=== PATIENT | female | born 1985 | race American Indian/Alaskan Native ===

== ENCOUNTER 2018-06-26 08:45 | Emergency (ER) | payer OTHER, BC ==
[~2018-06-26] VITALS: Ht 170.2 cm; Wt 9.5 kg
[~2018-06-26 08:45] MED LIST: KEFLEX500 MG PO; MUPIROCIN1 GM TP; NORCO 5-325 TA1 EACH PO; SSD20 GM TOP
[2018-06-26] MEDS ORDERED: NORCO 5-325 TA1 EACH PO (09:48)
== END 2018-06-26 10:05 | disposition home or self-care (01) ==
LOC: ED 08:45
DX: S30.0XXA Contusion of lower back and pelvis, initial encounter (principal); V49.60XA Unspecified car occupant injured in collision with unspecified motor vehicles in traffic accident, initial encounter
CPT/HCPCS: 72170; 96372; 99283-25; J1885

== ENCOUNTER 2018-07-07 15:40 | Emergency (ER) | payer OTHER, BC ==
[~2018-07-07] VITALS: Ht 170.2 cm; Wt 9.5 kg
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
== END 2018-07-07 16:32 | disposition home or self-care (01) ==
LOC: ED 15:40
DX: R20.0 Anesthesia of skin (principal); M54.5 Low back pain

== ENCOUNTER 2020-04-11 08:13 | Day surgery (SDC) | payer BC, OTHER ==
[~2020-04-11] VITALS: Ht 170.2 cm; Wt 72.0 kg
--- NOTE | 2020-04-11 10:28 | NUR ---
04/11/20 Winnie8 Rosa Brock 1024- PT ARRIVES TO RM 10 RESTING WITH EYES CLOSED. OPENS EYES WITH VERBAL STIMULI. REPOSITIONS SELF TO BACK. BACK TO SLEEP WHEN NOT STIMULATED. RESP EVEN AND UNLABORED. ROOM AIR SATS GREATER THAN 93%. DENIES PAIN OR NAUSEA. MOTHER AT BEDSIDE.
--- NOTE | 2020-04-12 07:54 | OR ---
[facility] [address] [place], [place] [address] Signed DATE OF OPERATION: 04/11/2020 SURGEON: Julia Estrella MD PREOPERATIVE DIAGNOSES: 1. Rectal bleeding. 2. Maternal aunt with colon cancer in her 40s. 3. Infertility evaluation at [facility]. POSTOPERATIVE DIAGNOSES: 1. A 5 mm polyp, distal right colon. 2. Minimal internal hemorrhoid/skin tags. PROCEDURE: Colonoscopy with hot biopsy. ESTIMATED BLOOD LOSS: None. INDICATIONS: Josué is a 34-year-old female, who asked to see me for colonoscopy. She has had intermittent rectal bleeding in the last several months. She is also undergoing infertility evaluation at [facility]. Her maternal aunt was diagnosed with colon cancer in her 40s. She had been referred by her local strategic marketing associate to have a colonoscopy. In the office, I gave Josué a pamphlet on colonoscopy. She understands the nature of the test along with the risks including, but not limited to gas bloating, crampy abdominal pain, bleeding, perforation requiring surgery, and missed diagnosis. She also understands the need for IV conscious sedation, she had expressed understanding and wished to proceed. DESCRIPTION OF PROCEDURE: Josué was taken into our endoscopy suite and placed in the left lateral decubitus position. She was given IV sedation with 9 mg of Versed and 175 mcg of fentanyl. A digital rectal exam was performed and this was unremarkable. No evidence of any external hemorrhoids. She has good sphincter tone. The adult colonoscope was introduced and advanced all the way around into the cecum under direct visualization of camera. It did take extra sedation abdominal compression in order to advance the scope. Her prep was quite good. We could easily see the appendiceal orifice and the ileocecal valve. The scope was slowly withdrawn. We took pictures throughout for photodocumentation. We found a small 5 mm polyp in the distal right colon. It was Electronically Signed By: JULIA ESTRELLA MD 04/12/20 0754 PATIENT NAME: JOSUÉ CASTELLON OPERATIVE REPORT DATE OF : 87 REPORT #: [id number] PHYSICIAN: JULIA ESTRELLA MD PCP: TIBURCIO KING REPORT IS CONFIDENTIAL AND NOT TO BE RELEASED WITHOUT AUTHORIZATION [address] [address] Signed easily removed with the help of hot biopsy forceps. She had no diverticulosis. The rectum itself was unremarkable. Upon retroflexion of scope, she has very minimal internal anal hemorrhoid tissue along with skin tags. After this, the gas was suctioned out, colonoscope removed. Josué tolerated the procedure quite well. RECOMMENDATIONS: I will see Josué back in my office in 7 to 14 days to review her results. MD LESLIE Glover/RACHIDL /[id number] cc: Julia Estrella MD [facility] Copies: JULIA ESTRELLA MD [facility] ~ Electronically Signed By: JULIA ESTRELLA MD 04/12/20 0754 PATIENT NAME: JOSUÉ CASTELLON OZ OPERATIVE REPORT DATE OF : [birth year] REPORT #: [id number] PHYSICIAN: JULIA ESTRELLA MD PCP: TIBURCIO KING REPORT IS CONFIDENTIAL AND NOT TO BE RELEASED WITHOUT AUTHORIZATION
--- NOTE | 2020-04-13 17:05 | PATH ---
[facility] [address] [place], [place] [address] Signed SPECIMEN(S): A RIGHT DISTAL COLON POLYP SPECIMEN SOURCE: A. RIGHT DISTAL COLON POLYP CLINICAL HISTORY: Rectal bleedings. Post-Op: Polyp, minimal internal hemorrhoids. MICROSCOPIC DESCRIPTION: Histologic sections of all submitted blocks are examined by light microscopy. These findings, together with the gross examination, support the pathologic diagnosis. FINAL PATHOLOGIC DIAGNOSIS: Right distal colon polyp, biopsy: - Tubular adenoma (two fragments). JVR:cml:C2NR GROSS DESCRIPTION: The specimen, labeled "Josué Castellon, #1," and designated on the requisition "right distal colon polyp," is received in formalin and consists of six monet soft tissue fragment(s) that measure 0.1-0.3 cm in greatest dimension. The specimen is entirely submitted in cassette (A1). FB (under the direct supervision of a pathologist) The Gross Description was prepared using a voice recognition system. The report was reviewed for accuracy; however, sound-alike word errors, addition and/or deletions may occur. If there is any question about this report, please contact Client Services. PERFORMING LABORATORY: The technical component was performed by [facility], [address] [place] [address] (Slitting Machine Operator Helper: Teresa Ness MD; CLIA# [id number]). Professional interpretation was performed by [facility], [facility], [address] [place] [address] (Slitting Machine Operator Helper: Jaime Simpson M.D.). Diagnostician: Rd Oquendo MD Pathologist Electronically Signed 04/13/2020 Copies: PATIENT NAME: JOSUÉ CASTELLON PATHOLOGY DATE OF : [birth year] REPORT #: [id number] PHYSICIAN: CELESTINO PATHOLOGY PCP: TIBURCIO KING REPORT IS CONFIDENTIAL AND NOT TO BE RELEASED WITHOUT AUTHORIZATION [address] [address] Signed ~ PATIENT NAME: JOSUÉ CASTELLON PATHOLOGY DATE OF : [birth year] REPORT #: [id number] PHYSICIAN: CELESTINO PATHOLOGY PCP: TIBURCIO KING REPORT IS CONFIDENTIAL AND NOT TO BE RELEASED WITHOUT AUTHORIZATION
== END 2020-04-11 11:03 | disposition home or self-care (01) ==
LOC: OPS 08:13 → DS 08:13 → OPS 09:00
PROVIDERS: ATTEND Colon & Rectal Surgery
PROC: 0DBK8ZZ Excision of Ascending Colon, Via Natural or Artificial Opening Endoscopic (ICD-10-PCS; principal; 2020-04-11 09:45)
DX: D12.2 Benign neoplasm of ascending colon (principal); K64.8 Other hemorrhoids; Z80.0 Family history of malignant neoplasm of digestive organs
CPT/HCPCS: 84703; 99153; G0500; J2250; J3010; J7121

== ENCOUNTER 2020-12-13 10:20 | Emergency (ER) | payer BC, OTHER ==
[~2020-12-13] VITALS: Ht 170.2 cm; Wt 98.0 kg
[2020-12-13] MEDS ORDERED: EMOQUETTE1 EACH PO (10:46)
== END 2020-12-13 12:21 | disposition home or self-care (01) ==
LOC: ED 10:20
DX: S06.0X0A Concussion without loss of consciousness, initial encounter (principal); W22.8XXA Striking against or struck by other objects, initial encounter
CPT/HCPCS: 70450; 99283-25

== ENCOUNTER 2021-04-19 08:20 | Emergency (ER) | payer BC, OTHER ==
[~2021-04-19] VITALS: Ht 172.7 cm; Wt 98.5 kg
[~2021-04-19 08:20] MED LIST changes: +EMOQUETTE1 EACH PO
[2021-04-19] MEDS ORDERED: MULTI-VITAMIN1 EACH PO (08:41)
== END 2021-04-19 13:51 | disposition home or self-care (01) ==
LOC: ED 08:20
DX: K80.20 Calculus of gallbladder without cholecystitis without obstruction (principal); Z79.899 Other long term (current) drug therapy
CPT/HCPCS: 74177; 76705; 80053; 80500; 81001; 83690; 84703; 85025; 96375; 99284-25; J1170; J2405; J7030; Q9967

== ENCOUNTER 2021-07-18 06:10 | Day surgery (SDC) | payer BC, OTHER ==
[~2021-07-18] VITALS: Ht 172.7 cm; Wt 99.5 kg
[~2021-07-18 06:10] MED LIST changes: +IRON18 MG PO; +MULTI-VITAMIN1 EACH PO
--- NOTE | 2021-07-18 09:18 | NUR ---
07/18/21 0918 Crissy Lewis 0914-PATIENT ARRIVED TO PACU ON 2L NC RR EVEN. NONAROUSABLE. SR. IVF INFUSING. SMALL AMT OF DRAINAGE TO JENNIFER PAD.
[2021-07-18] MEDS ORDERED: MOTRIN IB200 MG PO (09:33)
[2021-07-18] MEDS ORDERED: HYDROCODON-ACE1 EA10 PO (09:34)
--- NOTE | 2021-07-18 10:17 | NUR ---
PT ALERT, ORIENTED AND SUPPORTED BY FAMILY. PT IS PLEASANT, FEELS INFORMED. REQUESTED PRAYER, WILL FOLLOW
--- NOTE | 2021-07-19 17:45 | OR ---
[facility] [address] [place], [place] [address] Signed DATE OF OPERATION: 07/18/2021 SURGEON: Alis Aguilera MD PREOPERATIVE DIAGNOSIS: Endometrial polyp. POSTOPERATIVE DIAGNOSIS: Endometrial polyp. PROCEDURE: Hysteroscopy, resection of polyp. ANESTHESIA: MAC. ESTIMATED BLOOD LOSS: Minimal. DRAINS: None. INDICATIONS AND FINDINGS: The patient is a 35-year-old female, 1, para 1, undergoing IVF, who was found to have an intrauterine endometrial polyp. At the time of surgery, she was on her period. The uterus was normal size. It sounded to 7 cm. There were no adnexal masses. The cavity appeared normal except for an anterior right fundal polyp. DESCRIPTION OF PROCEDURE: The patient was prepped and draped in the dorsal lithotomy position. A weighted speculum was placed. The anterior lip of the cervix was visualized and grasped with a single-tooth tenaculum. The cavity was sounded to 7 cm. The endocervical canal was then easily dilated to a #8 dilator. The MyoSure device was then placed. The cavity was evaluated and the polyp identified. The MyoSure Lite was then introduced and the polyp removed without any difficulty. The remaining cavity appeared normal. The procedure was then terminated. The tenaculum was removed and there was some bleeding initially from the left hand tenaculum site which responded to pressure. The procedure was then terminated and she was taken to the recovery room in good condition. All sponge and needle counts were correct. Electronically Signed By: ALIS AGUILERA MD 07/19/21 9499 PATIENT NAME: JOSUÉ CASTELLON OPERATIVE REPORT DATE OF : [birth year] REPORT #: [id number] PHYSICIAN: ALIS AGUILERA MD PCP: [facility] REPORT IS CONFIDENTIAL AND NOT TO BE RELEASED WITHOUT AUTHORIZATION [address] [address] Signed MD DENISE Ahmadi/MODL /[id number] cc: Karen Copies: ~ Electronically Signed By: ALIS AGUILERA MD 07/19/21 1745 PATIENT NAME: JOSUÉ CASTELLON OPERATIVE REPORT DATE OF : [birth year] REPORT #: [id number] PHYSICIAN: ALIS AGUILERA MD PCP: [facility] REPORT IS CONFIDENTIAL AND NOT TO BE RELEASED WITHOUT AUTHORIZATION
== END 2021-07-18 10:00 | disposition home or self-care (01) ==
LOC: OPS 06:10 → DS 06:10 → OPS 07:30 → DS 08:40 → OPS 10:00
PROVIDERS: ATTEND Obstetrics & Gynecology
PROC: 0UB98ZZ Excision of Uterus, Via Natural or Artificial Opening Endoscopic (ICD-10-PCS; principal; 2021-07-18 08:40)
DX: N84.0 Polyp of corpus uteri (principal); E66.09 Other obesity due to excess calories; Z68.32 Body mass index [BMI] 32.0-32.9, adult
CPT/HCPCS: J1885; J2001; J2250; J2405; J2704; J2765; J7121

== ENCOUNTER 2021-07-27 06:45 | Day surgery (SDC) | payer BC, OTHER ==
[~2021-07-27] VITALS: Ht 172.7 cm; Wt 99.5 kg
[~2021-07-27 06:45] MED LIST changes: +HYDROCODON-ACE1 EA10 PO; +MOTRIN IB200 MG PO
--- NOTE | 2021-07-27 11:08 | NUR ---
07/27/21 1108 Sheets,Ysabel 1102 PT ARRIVED TO PACU WITH ORAL AIRWAY IN PLACE AND 10L VIA MASK. RESP EVEN AND UNLABORED. VSS. 1103 PT SLIGHTLY REACTIVE TO TACTILE STIMULI AND STARTING TO COUGH ON AIRWAY, AIRWAY REMOVED.
--- NOTE | 2021-07-27 13:10 | NUR ---
RESPONDS TO VOICE. DENIES NAUSEA - EATING CRACKERS AND SIPPING WATER. REPORTS 8/10 RIGHT EPIGASTRIC PAIN. MEDICATED PER EMAR FOR PAIN. DRESSINGS REMAIN CDI. ABD REMAINS SOFT. MOM (SONG) REMAINS IN ROOM.
--- NOTE | 2021-07-27 16:35 | NUR ---
FLEXT SITTING AT BEDSIDE, REPORTS NAUSEA IMPROVED. PROVIDED PATIENT WITH DISCHARGE EDUCATION, DISCUSSED SIGNS AND SYMPTOMS OF INFECTION, PAIN CONTROL AND DIET. PATIENT VERBALIZED UNDERSTANDING. MOTHER, FATHER IN ROOM HEARING DISCHARGE INSTRUCTION. PROVIDED PATIENT WITH WHEELCHAIR RIDE OUT TO FRONT, PATIENT TRANSFERED INTO CAR WELL.
--- NOTE | 2021-07-27 16:37 | NUR ---
1625 DRESSED READY TO GO. STATES PAIN IMPROVED. NOW EMESIS MOSTLY DRY HEAVES. CALL TO DR ESTRELLA AND ADDED SCRIPT FOR ZOFRAN. PT WANTING TO GO HOME.
--- NOTE | 2021-07-28 07:52 | OR ---
[facility] [address] [place], [place] [address] Signed DATE OF OPERATION: 07/27/2021 SURGEON: Julia Crane MD PREOPERATIVE DIAGNOSES: 1. Cholecystitis with cholelithiasis. 2. Umbilical hernia (7 mm). POSTOPERATIVE DIAGNOSES: 1. Cholecystitis with cholelithiasis. 2. Umbilical hernia (7 mm). 3. Cholesterolosis. PROCEDURES: 1. Laparoscopic cholecystectomy with intraoperative cholangiogram. 2. Primary umbilical herniorrhaphy. ESTIMATED BLOOD LOSS: None. FINDINGS: The intraoperative cholangiogram was unremarkable. Josué had one large stone practically 3 cm in diameter. She had three smaller stones over a cm in diameter each. She clearly had significant cholesterolosis. Not too much in the way of chronic inflammatory changes. INDICATIONS: Josué is a 35-year-old obese female, who has been going through infertility workup and evaluation and treatment over the last year or so. She has been on a number of different hormones. Right before 2020, she went to the emergency room with severe epigastric and right upper quadrant abdominal pain. It was radiating through to her back. She had nausea, vomiting, and diarrhea. Her laboratory work was unremarkable. The CT scan showed the stones in the gallbladder as well as a small umbilical hernia. Her ultrasound confirmed several large gallstones with the largest measuring around 2.9 cm. The gallbladder wall was not particularly thickened. The common bile duct was unremarkable. There was no pericholecystic fluid. There was no Willis sign. She was therefore asked to see me as a local general surgeon. She told me she has continued to have intermittent episodes of right upper quadrant abdominal pain but not nearly as bad as just before . In the office, I had given her a brochure on the gallbladder. We had reviewed the location and function of the Electronically Signed By: JULIA CRANE MD 07/28/21 0752 PATIENT NAME: JOSUÉ CASTELLON OPERATIVE REPORT DATE OF : [birth year] REPORT #: [id number] PHYSICIAN: JULIA CRANE MD PCP: [facility] REPORT IS CONFIDENTIAL AND NOT TO BE RELEASED WITHOUT AUTHORIZATION [facility] [address] [place], [place] [address] Signed gallbladder. We reviewed laparoscopic versus open cholecystectomy. We reviewed the expected intraop and postop course. There is risk including, but not limited to bleeding, infection, scarring, change in contour of the skin, damage to bowel, damage to the main bile duct, incisional hernias and other unforeseen comorbidities. She had expressed understanding and wished to proceed. DESCRIPTION OF PROCEDURE: I met with Josué and her mother in our preop area. After answering their questions, we took Josué into the operating room. She was placed in the supine position under general endotracheal tube anesthesia. She was given preoperative antibiotics along with subcutaneous heparin. SCDs were utilized. She was then prepped and draped in the usual sterile fashion. We utilized our standard transverse supraumbilical incision and carried it down around the umbilicus bluntly and with the cautery. We the small umbilical hernia sac from the fascial defect with the help of the cautery. The Ana trocar was placed through this fascial defect into the abdomen without difficulty. The abdomen was then insufflated without difficulty. Our other 3 trocar sites were placed under direct visualization without difficulty. We can see that she has a very healthy liver. The gallbladder was then grasped and elevated in the right upper quadrant. We took pictures throughout for photodocumentation. Thankfully, we can move her stones around into the gallbladder. We had to dissect carefully down and around the triangle of AC with the help of [place] dissectors. The intraoperative cholangiogram was then performed and this was unremarkable. We secured the cystic duct stump with three sequential clips placed completely across the cystic duct stump. We used a couple of clips across the cystic artery and it was divided. The gallbladder was slowly and carefully removed from the gallbladder fossa with the help of the cautery and placed into an EndoCatch bag. The right upper quadrant was irrigated and suctioned out until clear. We used our laparoscopic suturing device to pass 0-Vicryl suture on either side of the fascia of the subxiphoid trocar site. This was tied down to close the fascia primarily. After this, the trocars were removed. We had to lengthen the umbilical fascial defect vertically up to midline in order to remove the gallbladder with the large stones. That defect was approaching 3 cm in diameter due to the large stones. We then closed that fascial defect with interrupted gimrzk-gh-sdzqa and simple #1 Prolene sutures. We injected local anesthetic into the trocar sites. Each trocar site was irrigated and suctioned out until clear. We brought the umbilical skin back down to the midline with an interrupted 2-0 PDS suture. The skin and dermis were reapproximated with interrupted 3-0 subcuticular and Monocryl sutures. Dry gauze and tape were applied to all incisions. Josué was then awakened from her anesthesia, extubated in the OR, and taken to the recovery room in stable condition. Electronically Signed By: JULIA CRANE MD 07/28/21 0752 PATIENT NAME: JOSUÉ CASTELLON OPERATIVE REPORT DATE OF : [birth year] REPORT #: [id number] PHYSICIAN: JULIA CRANE MD PCP: [facility] REPORT IS CONFIDENTIAL AND NOT TO BE RELEASED WITHOUT AUTHORIZATION [facility] [address] [place] [place] [address] Signed Julia Crane MD [facility] /[id number] cc: Julia Crane MD [facility] Copies: JULIA CRANE MD ~ Electronically Signed By: JULIA CRANE MD 07/28/21 0752 PATIENT NAME: JOSUÉ CASTELLON OPERATIVE REPORT DATE OF : [birth year] REPORT #: [id number] PHYSICIAN: JULIA CRANE MD PCP: [facility] REPORT IS CONFIDENTIAL AND NOT TO BE RELEASED WITHOUT AUTHORIZATION
--- NOTE | 2021-07-30 15:21 | PATH ---
[facility] [address] [facility] [place], [place] [address] Signed SPECIMEN(S): A GALLBLADDER WITH STONES SPECIMEN SOURCE: A. GALLBLADDER WITH STONES CLINICAL HISTORY: Laparoscopic cholecystectomy. Chronic cholecystitis, umbilical hernia. FINAL PATHOLOGIC DIAGNOSIS: Gallbladder, cholecystectomy: - Chronic cholecystitis with cholesterolosis. - Cholelithiasis. NAL:[facility]:C2NR MICROSCOPIC EXAMINATION: Histologic sections of all submitted blocks are examined by light microscopy. These findings, together with the gross examination, support the pathologic diagnosis. GROSS DESCRIPTION: The specimen, labeled "JM, A," and designated on the requisition "gallbladder with stones," is received in formalin and consists of Specimen: Previously opened gallbladder. Dimensions: 9.4 x 3.5 x 1.8 cm. Serosa: [place]-monet. Cystic Duct: Unobstructed, margin inked black and shaved. Calculi: Four black, multifaceted brown-monet calculi (1.5-3.3 cm in greatest dimension). Mucosa: Red-brown and velvety with yellow stippling. Wall thickness: 0.4 cm. Lymph node: No pericystic lymph nodes are grossly identified. Additional: None. Packaging Clerk sections are submitted in cassette (A1). AC (under the direct supervision of a pathologist) The Gross Description was prepared using a voice recognition system. The report was reviewed for accuracy; however, sound-alike word errors, addition and/or deletions may occur. If there is any question about this report, please contact Client Services. PERFORMING LABORATORY: The technical component was performed by [facility], PATIENT NAME: JOSUÉ CASTELLON PATHOLOGY DATE OF : [birth year] REPORT #: [id number] PHYSICIAN: CELESTINO LOAIZA PCP: PATO MONTANA MD REPORT IS CONFIDENTIAL AND NOT TO BE RELEASED WITHOUT AUTHORIZATION [facility] [address] [place], [place] [address] [place] [address] (Supervisor Uranium Processing: Teresa Ness MD; CLIA# [id number]). Professional interpretation was performed by [facility], [facility], [address] [place] [address] (CLIA# [id number]). Diagnostician: Shilpi Richter MD Pathologist Electronically Signed 07/30/2021 Copies: ~ PATIENT NAME: JOSUÉ CASTELLON PATHOLOGY DATE OF : [birth year] REPORT #: [id number] PHYSICIAN: CELESTINO LOAIZA PCP: PATO MONTANA MD REPORT IS CONFIDENTIAL AND NOT TO BE RELEASED WITHOUT AUTHORIZATION
== END 2021-07-27 16:35 | disposition home or self-care (01) ==
LOC: DS 06:45
PROVIDERS: ATTEND Colon & Rectal Surgery
PROC: BF03YZZ Plain Radiography of Gallbladder and Bile Ducts using Other Contrast (ICD-10-PCS; 2021-07-27)
PROC: 0FT44ZZ Resection of Gallbladder, Percutaneous Endoscopic Approach (ICD-10-PCS; principal; 2021-07-27 09:00)
DX: K80.10 Calculus of gallbladder with chronic cholecystitis without obstruction (principal); K42.9 Umbilical hernia without obstruction or gangrene
CPT/HCPCS: 00790; 74300; J0131; J0690; J1100; J1170; J1644; J1885; J2001; J2250; J2405; J2704; J3010; J7121; Q9967

== ENCOUNTER 2021-08-03 10:30 | Emergency (ER) | payer BC, OTHER ==
[~2021-08-03] VITALS: Ht 172.7 cm; Wt 99.4 kg
--- OUTSIDE RECORDS SUMMARY | 2021-08-03 10:32 | XMS ---
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 TIBURCIO KING Physician Environmental Science Technician: Surgical 07/08/2018-Current PHONE: Unknown Stephanie has no Care Guidelines for this patient. Care History Medical/Surgical 07/08/2018 [facility] \T\middot;\T\nbsp; PATIENT IS A [employer] MEMBER. \T\middot;\T\nbsp; PLEASE REFER PATIENT TO [facility] FOR NON EMERGENT MEDICAL NEEDS. \T\middot;\ T\nbsp; [facility] CAN SEE PATIENTS SAME DAY FOR APTS IF PATIENT CALLS FIRST THING IN THE MORNING. E.D. VISIT COUNT (12 MO.) 3 [facility] TOTAL 3 NOTE: Visits indicate total known visits. ED/UCC VISIT TRACKING (12 MO.) 08/03/2021 10:30 [facility] [place] TYPE: Emergency COMPLAINT: - ALLERGIC REACTION TO MEDICATION 04/19/2021 08:21 [facility] [place] TYPE: Emergency COMPLAINT: - ABDOMINAL PAIN DIAGNOSES: - Other m[facility] (current) drug therapy - Calculus of gallbladder without cholecystitis without obstruction - Upper abdominal pain, unspecified 12/13/2020 10:21 [facility] [place] TYPE: Emergency COMPLAINT: - HEAD PAIN/INJURY DIAGNOSES: - Concussion without loss of consciousness, initial encounter - Dizziness and giddiness - Striking against or struck by other objects, initial encounter INPATIENT VISIT TRACKING (12 MO.) No inpatient visits to display in this time frame [email or web address]
[2021-08-03] MEDS ORDERED: IBUPROFEN800 MG PO (10:48)
[2021-08-03] MEDS ORDERED: APRI1 EACH PO (10:48)
[2021-08-03] MEDS ORDERED: ONDANSETRON HCL4 MG PO (10:48)
[2021-08-03] MEDS ORDERED: HYDROCODON-ACE1 EAC8 PO (10:48)
[2021-08-03] MEDS ORDERED: MEDROL4 MG PO (10:50)
== END 2021-08-03 12:27 | disposition home or self-care (01) ==
LOC: ED 10:30
DX: R21 Rash and other nonspecific skin eruption (principal); T39.315A Adverse effect of propionic acid derivatives, initial encounter; Z79.899 Other long term (current) drug therapy; Z85.41 Personal history of malignant neoplasm of cervix uteri
CPT/HCPCS: 96372; 99283; J1100

== ENCOUNTER 2022-06-04 14:15 | Inpatient (IN) | payer BC ==
[~2022-06-04] VITALS: Ht 172.7 cm; Wt 108.9 kg
[~2022-06-04 14:15] MED LIST changes: +APRI1 EACH PO; +HYDROCODON-ACE1 EAC8 PO; +IBUPROFEN800 MG PO; +MEDROL4 MG PO; +ONDANSETRON HCL4 MG PO
--- NOTE | 2022-06-05 02:27 | PR ---
[facility] [address] [place], [place] [address] Signed Progress Notes IP Datetime Report Generated by MARCELLUS: 06/05/2022 02:27 PROGRESS NOTES: [id number] Impression: Normal Progression of Labor; Reassuring Heart Rate Procedures: Artificial ROM; Scalp Electrode; Sterile Vag Exam Plan: Continue Present Management VITAL SIGNS: [id number] Vital Signs: Reviewed VS Notable Details: severe HTN EXAM: [id number] Dilatation: 2.0 Effacement: 75 Station: -2 Contractions: occ MEMBRANES: [id number] Comments: Some progress. Decreased variability with the mag but accel with exam is reassuring. BPs currently improved from earlier. FETUS A: [id number] FHR Baseline: 125 Variability: Moderate 6-25bpm Accelerations: 15X15 Decelerations: None FHR Category: Category I Presentation: Vertex Comments on Fetus A: no evidence of metabolic acidosis FETUS B: [id number] Signing Physician: Alis Aguilera MD Copies: ~ *Electronically Signed* 06/05/22 022 ALIS AGUILERA MD PATIENT NAME: JOSUÉ CASTELLON PROGRESS NOTE DATE OF : 87 PHYSICIAN: ALIS AGUILERA MD RPT #: [id number] REPORT IS CONFIDENTIAL AND NOT TO BE RELEASED WITHOUT AUTHORIZATION
--- NOTE | 2022-06-05 07:49 | PR ---
[facility] [address] [facility] [place], [place] [address] Signed Progress Notes IP Datetime Report Generated by MARCELLUS: 06/05/2022 07:49 PROGRESS NOTES: [id number] Impression: Normal Progression of Labor Procedures: Sterile Vag Exam Plan: Continue Present Management Other Plans: position change VITAL SIGNS: [id number] Vital Signs: Reviewed VS Notable Details: severe HTN EXAM: [id number] Dilatation: 9.0 Effacement: 90 Station: 0 Contractions: occ MEMBRANES: [id number] ROM Note: large amount of amniotic fluid noted, chux changed. Comments: Progressing well despite dysfunctional pattern. Decreased variability likely related to mag. Will begin position changes to help with decels. FETUS A: [id number] FHR Baseline: 125 Variability: Moderate 6-25bpm Accelerations: 15X15 Decelerations: None FHR Category: Category I Presentation: Vertex Comments on Fetus A: no evidence of metabolic acidosis FETUS B: [id number] Signing Physician: Alis Aguilera MD Copies: ~ *Electronically Signed* 06/05/22 0749 ALIS AGUILERA MD PATIENT NAME: JOSUÉ CASTELLON PROGRESS NOTE DATE OF : 87 PHYSICIAN: ALIS AGUILERA MD RPT #: [id number] REPORT IS CONFIDENTIAL AND NOT TO BE RELEASED WITHOUT AUTHORIZATION
--- NOTE | 2022-06-06 12:47 | PR ---
[facility] [address] [place] [address] Signed PP Progress Notes Datetime Report Generated by MARCELLUS: 06/06/2022 12:47 SUBJECTIVE: [id number] Pain: Within Normal Limits Nausea/Vomiting: Denies Vital Signs: [id number] Vital Signs: Reviewed Notable Details: severe HTN Cardiovascular: Not Done Respiratory: Not Done Abdomen/Uterus: Abnormal Lochia: Normal Vulva/Perineum: Not Done Breasts: Not Done CVA Tenderness: Not Done Extremities: Normal Incision: Not Applicable Progress: Normal Exam Comments: Fundus firm, NT @ U. H/H 9.7/29.1, WBC 10.3, plat 218k IMPRESSION/PLAN/PROCEDURES: [id number] Impression: Induced Hypertension Other Plans: start Procardia 10 mg + 30 mg XL Progress Notes: Her BPs had been doing well until just now with severe range BPs found. Will start Procardia 10 mg IR followed by 30 mg XL and continue close observation. Signing Physician: Alis Aguilera MD Copies: ~ *Electronically Signed* 06/06/22 1247 ALIS AGUILERA MD PATIENT NAME: JOSUÉ CASTELLON PROGRESS NOTE DATE OF : [birth year] PHYSICIAN: ALIS AGUILERA MD RPT #: [id number] REPORT IS CONFIDENTIAL AND NOT TO BE RELEASED WITHOUT AUTHORIZATION
--- NOTE | 2022-06-07 08:41 | PR ---
[facility] [address] [facility] [place], [place] [address] Signed PP Progress Notes Datetime Report Generated by MARCELLUS: 06/07/2022 08:41 SUBJECTIVE: [id number] Pain: Within Normal Limits Nausea/Vomiting: Denies Vital Signs: [id number] Vital Signs: Reviewed Notable Details: mild HTN Cardiovascular: Not Done Respiratory: Not Done Abdomen/Uterus: Abnormal Lochia: Normal Vulva/Perineum: Not Done Breasts: Not Done CVA Tenderness: Not Done Extremities: Normal Incision: Not Applicable Progress: Normal Exam Comments: Fundus firm, NT @ U-1. IMPRESSION/PLAN/PROCEDURES: [id number] Impression: Normal Progression; Induced Hypertension Other Impression: improved BPs Plan: Discharge Other Plans: start Procardia 10 mg + 30 mg XL Progress Notes: Doing well with improved BPs on her Procardia XL. I feel she is stable for D/C with short interval f/u. Signing Physician: Alis Aguilera MD Copies: ~ *Electronically Signed* 06/07/22 0841 ALIS AGUILERA MD PATIENT NAME: CASTELLONJOSUÉ PROGRESS NOTE DATE OF : 87 PHYSICIAN: ALIS AGUILERA MD RPT #: [id number] REPORT IS CONFIDENTIAL AND NOT TO BE RELEASED WITHOUT AUTHORIZATION
== END 2022-06-07 10:45 | disposition home or self-care (01) | DRG 807 ==
LOC: FBCO 14:15 → FBC 16:00
PROVIDERS: ADMIT Obstetrics & Gynecology; ATTEND Obstetrics & Gynecology
PROC: 10E0XZZ Delivery of Products of Conception, External Approach (ICD-10-PCS; principal; 2022-06-05)
PROC: 0KQM0ZZ Repair Perineum Muscle, Open Approach (ICD-10-PCS; 2022-06-05)
PROC: 10907ZC Drainage of Amniotic Fluid, Therapeutic from Products of Conception, Via Natural or Artificial Opening (ICD-10-PCS; 2022-06-05)
PROC: 00HU33Z Insertion of Infusion Device into Spinal Canal, Percutaneous Approach (ICD-10-PCS; 2022-06-05)
PROC: 3E0R3BZ Introduction of Anesthetic Agent into Spinal Canal, Percutaneous Approach (ICD-10-PCS; 2022-06-05)
PROC: 3E0P7VZ Introduction of Hormone into Female Reproductive, Via Natural or Artificial Opening (ICD-10-PCS; 2022-06-05)
DX: O14.14 Severe pre-eclampsia complicating childbirth (principal); Z37.0 Single live birth; O60.14X0 Preterm labor third trimester with preterm delivery third trimester, not applicable or unspecified; Z67.40 Type O blood, Rh positive; O70.1 Second degree perineal laceration during delivery; Z3A.35 35 weeks gestation of pregnancy; O99.214 Obesity complicating childbirth; Z20.822 Contact with and (suspected) exposure to COVID-19
CPT/HCPCS: 36415; 59025; 82565; 82570; 83735; 84156; 84450; 84520; 84550; 85027; 86850; 86900; 86901; 87502; A9270; C9803; G0463; J1644; J2405; J2540; J2795; J3010; J3475; J7121; U0003

== ENCOUNTER 2023-06-20 12:52 | Emergency (ER) | payer BC, OTHER ==
[~2023-06-20] VITALS: Ht 172.7 cm; Wt 97.7 kg
[2023-06-20 15:03] LABS: BASOPHILS 0.6 % (0-2); EOSINOPHILS 1.6 % (0-6); HEMATOCRIT 41.9 % (35.0-50.0); HEMOGLOBIN 13.5 g/dL (12.0-18.0); LYMPHOCYTES 21.4 % (24-44); MCH 23.7 (27-36); MCHC 32.1 g/dl (30-36); MCV 73.6 fl (81-99); MONOCYTES 8.6 % (0-12); NEUTROPHILS 67.8 % (39-80); PLATELET COUNT 413 K/uL (140-440); RBC 5.69 M/ul (4.3-5.7); RDW 16.3 (10.5-15.0)
[2023-06-20 15:16] LABS: ALBUMIN 3.6 g/dL (3.4-5.0); ALBUMIN/GLOBULIN RATIO 0.73 (1.1-2.4); ANION GAP 20.5 (7-21); BILIRUBIN, TOTAL 0.3 ng/dL (0.2-1.0); BUN/CREATININE RATIO 18.47 (6.0-28.6); CALCIUM 8.9 mg/dL (8.5-10.1); CREATININE, SERUM 0.92 mg/dL (0.55-1.02); POTASSIUM 3.5 mmol/L (3.5-5.1); PROTEIN, TOTAL 8.5 g/dL (6.4-8.2)
[2023-06-20] MEDS ORDERED: SODIUM CHLORIDE 0.9% 1,000 ML IV PRN (15:45)
[2023-06-20] MEDS ORDERED: ONDANSETRON ODT4 MG PO (16:50)
== END 2023-06-20 17:00 | disposition home or self-care (01) ==
LOC: ED 12:52
PROVIDERS: Emergency Medicine
DX: R11.10 Vomiting, unspecified (principal); R19.7 Diarrhea, unspecified
CPT/HCPCS: 36415; 80053; 83735; 85025; 96360; 99284-25; J7030

== ENCOUNTER 2023-11-24 20:43 | Emergency (ER) | payer OTHER, BC ==
[~2023-11-24] VITALS: Ht 172.7 cm; Wt 100.0 kg
[~2023-11-24 20:43] MED LIST changes: +ONDANSETRON ODT4 MG PO
[2023-11-24] MEDS ORDERED: TERBINAFINE HC250 MG PO (20:58)
[2023-11-24] MEDS ORDERED: TRAMADOL HCL50 MG PO (22:13)
[2023-11-24 22:26] VITALS: BP 120/58
[2023-11-24] MEDS ORDERED: TRAMADOL HCL 50 MG HOME.PACK PO ONE (22:30)
== END 2023-11-24 22:28 | disposition home or self-care (01) ==
LOC: ED 20:43
DX: S83.91XA Sprain of unspecified site of right knee, initial encounter (principal); S90.111A Contusion of right great toe without damage to nail, initial encounter; W01.198A Fall on same level from slipping, tripping and stumbling with subsequent striking against other object, initial encounter; Z79.899 Other long term (current) drug therapy
CPT/HCPCS: 73560; 73660; A9270

== ENCOUNTER 2024-11-25 05:55 | Day surgery (SDC) | payer BC, OTHER ==
[~2024-11-25] VITALS: Ht 172.7 cm; Wt 99.0 kg
[~2024-11-25 05:55] MED LIST changes: +IRON18 M1 PO; +LACTATED RINGER'S 1,000 ML IV SCH; +MULTI VITAMIN1 EACH PO; +TERBINAFINE HC250 MG PO; +TRAMADOL HCL50 MG PO; +ZYRTEC10 M3 PO
[2024-11-25 06:05] VITALS: BP 124/61
[2024-11-25] MEDS ORDERED: IBLOOD GLUCOSE TEST STRIP 1 EA TEST VI PRN ×2 (07:00→08:30)
[2024-11-25] MEDS ORDERED: LIDOCAINE HCL 1% 5 ML SDV INJ ONE (07:00)
[2024-11-25] MEDS ORDERED: fentaNYL citrate 100 MCG/2 ML VIAL ONE (07:04)
[2024-11-25] MEDS ORDERED: ACETAMINOPHEN 1,000 MG/100 ML VIAL ONE (07:04)
[2024-11-25] MEDS ORDERED: LIDOCAINE HCL 2% 5 ML SDV ONE (07:04)
[2024-11-25] MEDS ORDERED: MIDAZOLAM HCL 2 MG/2 ML VIAL ONE (07:05)
--- NOTE | 2024-11-25 07:40 | NUR ---
PT NOT AVAILABLE FOR VISIT. PROVIDED PRAYER.
[2024-11-25] MEDS ORDERED: KETOROLAC TROMETHAMINE 30 MG/ML VIAL ONE (08:15)
[2024-11-25] MEDS ORDERED: PROCHLORPERAZINE EDISYLATE 10 MG/2 ML VIAL IV PRN (08:30)
[2024-11-25] MEDS ORDERED: HYDROmorphone HCL 1 MG/ML SYR IV PRN (08:30)
[2024-11-25] MEDS ORDERED: fentaNYL citrate 50 MCG/ML SDV IV PRN (08:30)
[2024-11-25] MEDS ORDERED: NALOXONE HCL 0.4 MG SYR IV PRN (08:30)
--- NOTE | 2024-11-25 08:31 | NUR ---
11/25/24 0831 Crissy Lewis 0822-PATIENT ARRIVED TO PACU ON 6L MASK NONAROUSABLE ORAL AIRWAY IN PLACE. SR HR 70'S. IVF INFUSING. NO DRAINAGE TO JENNIFER AREA. 0831-PATIENT REMAINS NONAROUSABLE ORAL AIRWAY IN PLACE 6L MASK RR EVEN 100%
[2024-11-25] MEDS ORDERED: IBU600 MG PO ×2 (08:49→08:52)
[2024-11-25] MEDS ORDERED: ACETAMINOPHEN325 M1 PO (08:50)
[2024-11-25] MEDS ORDERED: OXYCODONE HCL5 M1 PO (08:51)
[2024-11-25 09:21] VITALS: BP 135/77
--- NOTE | 2024-11-26 07:40 | OR ---
[address] [place], [place] [address] Signed DATE OF OPERATION: 11/25/2024 SURGEON: Dolly Neves MD PREOPERATIVE DIAGNOSES: 1. Dysfunctional uterine bleeding. 2. Endometrial polyp. POSTOPERATIVE DIAGNOSIS: Dysfunctional uterine bleeding. PROCEDURE: Diagnostic hysteroscopy, endometrial tissue sampling, NovaSure endometrial ablation. FINDINGS: Normal cervical canal, normal uterine cavity, normal tubal ostia. ANESTHESIA: MAC plus local. LPN OR MEDICAL ASSISTANT: None. IV FLUIDS: 800 mL crystalloid. ESTIMATED BLOOD LOSS: 5 mL. URINE OUTPUT: 200 mL clear urine. DRAINS: None. SPECIMENS: Endometrial curettings. COUNTS: Correct x2. Electronically Signed By: DOLLY NEVES MD 11/26/24 0740 PATIENT NAME: JOSUÉ CASTELLON OPERATIVE REPORT DATE OF : 87 REPORT #: [id number] PHYSICIAN: DOLLY NEVES MD PCP: PATO MONTANA MD REPORT IS CONFIDENTIAL AND NOT TO BE RELEASED WITHOUT AUTHORIZATION [address] [place], [place] [address] Signed COMPLICATIONS: None apparent. TECHNIQUE IN DETAIL: With informed consent and negative hCG patient was taken to the operating room. She was given IV sedation. Her lower extremities were placed in Yellofin stirrups and low lithotomy position. She underwent a brief exam under anesthesia. She was prepped and draped in sterile fashion. Lower extremities were placed in the [facility] pneumatic compression devices. Time-out was performed per protocol. Speculum was placed and the cervix was visualized. The patient was given a paracervical block using 0.25% Marcaine with epinephrine. Single-tooth tenaculum was placed on the anterior lip of the cervix. The cervical canal was dilated using Hegar dilators to a size #6. The hysteroscope was then inserted without difficulty and there was visualization of the cervical canal and uterine cavity and tubal ostia. We used normal saline for insufflation medium. We took careful look all over and found no obvious endometrial polyp. At this time, some gentle curettings were performed for endometrial sampling in order to ensure no neoplastic tissue present before we performed the ablation. Tissue was sent to Pathology. The NovaSure uterine cavity measurement device was then inserted into the uterus and uterine cavity was measured. We found the uterine cavity to be 6 cm. The device was then removed. The NovaSure ablation device was then inserted into the uterine cavity and deployed per protocol. The width was measured. The ablation device was seated per protocol. The width was retracted and adjusted slightly. Length and width were put into the computer and cavity assessment was then performed and past. Ablation was begun. Total ablation time was 57 seconds. The device was then removed without difficulty. Single-tooth tenaculum was removed. The cervix was found to be hemostatic. I and O catheterization of the patient's bladder was performed and the above amount was removed. DISPOSITION: The patient was taken to the recovery room in stable condition. Dolly Neves MD BB/BRANDON Electronically Signed By: DOLLY NEVES MD 11/26/24 0740 PATIENT NAME: JOSUÉ CASTELLON OPERATIVE REPORT DATE OF : 87 REPORT #: [id number] PHYSICIAN: DOLLY NEVES MD PCP: PATO MONTANA MD REPORT IS CONFIDENTIAL AND NOT TO BE RELEASED WITHOUT AUTHORIZATION [address] [place], [place] [address] Signed /[id number] Copies: ~ Electronically Signed By: DOLLY NEVES MD 11/26/24 0740 PATIENT NAME: JOSUÉ CASTELLON OPERATIVE REPORT DATE OF : 87 REPORT #: [id number] PHYSICIAN: DOLLY NEVES MD PCP: PATO MONTANA MD REPORT IS CONFIDENTIAL AND NOT TO BE RELEASED WITHOUT AUTHORIZATION
--- NOTE | 2024-11-29 16:15 | PATH ---
[facility] [address] [place], [place] [address] Signed SPECIMEN(S): A ENDOMETRIAL CURETTINGS SPECIMEN SOURCE: A. ENDOMETRIAL CURETTINGS CLINICAL HISTORY: History of polyps and AUB FINAL PATHOLOGIC DIAGNOSIS: Endometrial curettings: - Proliferative endometrium with focal polypoid features. - Negative for hyperplasia or atypia. - Benign endocervical mucosa. JVR:clv MICROSCOPIC EXAMINATION: Histologic sections of all submitted blocks are examined by light microscopy. These findings, together with the gross examination, support the pathologic diagnosis. GROSS DESCRIPTION: The specimen, labeled and designated "Castellon, endometrial curettings," is received in formalin and consists of multiple fragments of red-brown soft and mucoid tissue (2.8 x 2.2 x 0.4 cm in aggregate). The specimen is submitted entirely in cassette (A1). VB (under the direct supervision of a pathologist) The Gross Description was prepared using a voice recognition system. The report was reviewed for accuracy; however, sound-alike word errors, addition and/or deletions may occur. If there is any question about this report, please contact Client Services. PERFORMING LABORATORY: Technical component was performed by [facility], [address] [place] [id number] (CLIA# [id number]). Professional interpretation was performed by [facility], [address] [place] [id number] (CLIA#: [id number]). Diagnostician: Jaime Simpson MD Pathologist Electronically Signed 11/29/2024 PATIENT NAME: JOSUÉ CASTELLON PATHOLOGY DATE OF : 87 REPORT #: [id number] PHYSICIAN: [facility] PCP: PATO MONTANA MD REPORT IS CONFIDENTIAL AND NOT TO BE RELEASED WITHOUT AUTHORIZATION [address] [place], [place] [address] Signed Copies: ~ PATIENT NAME: JOSUÉ CASTELLON PATHOLOGY DATE OF : 87 REPORT #: [id number] PHYSICIAN: [facility] PCP: PATO MONTANA MD REPORT IS CONFIDENTIAL AND NOT TO BE RELEASED WITHOUT AUTHORIZATION
== END 2024-11-25 09:25 | disposition home or self-care (01) ==
LOC: DS 05:55
PROVIDERS: ATTEND Obstetrics & Gynecology
PROC: 0U5B8ZZ Destruction of Endometrium, Via Natural or Artificial Opening Endoscopic (ICD-10-PCS; principal; 2024-11-25 07:30)
DX: N93.8 Other specified abnormal uterine and vaginal bleeding (principal); E66.09 Other obesity due to excess calories; Z68.33 Body mass index [BMI] 33.0-33.9, adult; Z79.899 Other long term (current) drug therapy; Z88.5 Allergy status to narcotic agent
CPT/HCPCS: 00952; J0131; J1885; J2003; J2250; J2405; J2704; J3010; J7121